=== PATIENT | female | born 1970 | race Caucasian/White ===

== ENCOUNTER → 2016-03-11 | Outpatient (CLI) | payer OTHER ==
[~2016-03-11] MED LIST: ABILIFY30 MG PO; AMBIEN 5MG TABLE5 MG PO; AMBIEN10 MG PO; B COMPLEX & B121 TAB PO; CYMBALTA; CYMBALTA 30MG30 MG PO; DEPAKOTE ER 50500 MG PO; DEPAKOTE500 M2 PO; DEPAKOTE500 MG PO; DESYREL 100MG100 MG PO; FLORINEF ACETA0.1 MG PO; KLONOPIN2 MG PO; LIPITOR40 MG PO; LUNESTA3 MG PO; MELATONIN1 MG PO; METFORMIN500 MG PO; MS CONTIN15 MG PO; NOR-QD0.35 MG PO; OMEGA 31000 MG PO; OXYCONTIN 20MG20 MG PO; PERCOCET 325 MG1 TA2 PO; PREMARIN 1.251.25 MG PO; PROFERRIN ES12 MG PO; SOMA 350MG350 MG/TAB PO; TRICOR48 MG PO; ZOCOR 20MG20 MG PO; ZOFRAN8 MG PO; ZYRTEC10 MG PO
== END ==
LOC: BHSO 11:29
DX: F31.89 Other bipolar disorder (principal)

== ENCOUNTER → 2016-04-25 | Outpatient (CLI) | payer OTHER | LOC: BHSO 11:09 | DX: F31.74 Bipolar disorder, in full remission, most recent episode manic (principal) ==

== ENCOUNTER → 2016-06-05 | Outpatient (CLI) | payer OTHER | LOC: BHSO 13:10 | DX: F31.73 Bipolar disorder, in partial remission, most recent episode manic (principal) ==

== ENCOUNTER → 2016-07-18 | Outpatient (CLI) | payer OTHER | LOC: BHSO 13:07 | DX: F31.73 Bipolar disorder, in partial remission, most recent episode manic (principal) ==

== ENCOUNTER → 2016-10-28 | Outpatient (CLI) | payer OTHER | LOC: BHSO 08:56 | DX: F31.73 Bipolar disorder, in partial remission, most recent episode manic (principal) ==

== ENCOUNTER → 2016-11-18 | Outpatient (CLI) | payer OTHER | LOC: BHSO 08:53 | DX: F31.31 Bipolar disorder, current episode depressed, mild (principal) ==

== ENCOUNTER → 2016-12-25 | Outpatient (CLI) | payer OTHER | LOC: BHSO 14:49 | DX: F31.81 Bipolar II disorder (principal) ==

== ENCOUNTER → 2016-12-30 | Outpatient (CLI) | payer OTHER | LOC: BHSO 11:04 | DX: F31.73 Bipolar disorder, in partial remission, most recent episode manic (principal) ==

== ENCOUNTER → 2017-01-23 | Outpatient (CLI) | payer OTHER | LOC: BHSO 10:31 | DX: F31.81 Bipolar II disorder (principal) ==

== ENCOUNTER → 2017-03-06 | Outpatient (CLI) | payer OTHER | LOC: BHSO 11:02 | DX: F31.73 Bipolar disorder, in partial remission, most recent episode manic (principal) | CPT/HCPCS: G0463 ==

== ENCOUNTER → 2017-06-05 | Outpatient (CLI) | payer OTHER | LOC: BHSO 11:10 | DX: F31.81 Bipolar II disorder (principal) | CPT/HCPCS: G0463 ==